=== PATIENT | female | born 1985 | race Caucasian/White ===

== ENCOUNTER 2021-09-15 13:50 | Emergency (ER) | payer SELFPAY ==
[~2021-09-15] VITALS: Ht 167.6 cm; Wt 90.0 kg
[2021-09-15 13:53] VITALS: BP 132/80
== END 2021-09-15 14:41 | disposition home or self-care (01) ==
LOC: ER 14:00
DX: F23 Brief psychotic disorder (principal)
CPT/HCPCS: 99283